=== PATIENT | female | born 1950 | race Caucasian/White ===

== ENCOUNTER → 2019-10-28 | Outpatient (CLI) | payer MEDICARE ==
[2019-10-28 11:26] LABS: Appearance,Urine Clear (Clear); Bilirubin,Urine Negative (Negative); Blood,Urine Negative (Negative); Color,Urine Light Yellow; Glucose,Urine (UA) Negative (Negative); Ketones,Urine Negative (Negative); Leukocyte Esterase,Urine Small (Negative); Nitrite,Urine Negative (Negative); Protein,Urine Negative (Negative); Specific Gravity,Urine 1.007 (1.001-1.035); Urobilinogen,Urine <2.0 mg/dL (<2.0); WBC,Urine 2 /hpf (0-5)
[2019-10-28 11:27] LABS: Basophils % (A) 0 %; Eosinophils # (A) 0.2 k/uL (0-0.7); Eosinophils % (A) 2 %; HCT 40.7 % (34.0-46.0); HGB 13.5 gm/dL (11.4-16.0); Lymphocytes # (A) 2.5 k/uL (1.0-4.8); Lymphocytes % (A) 24 %; MCH 29.8 pg (25.0-35.0); MCHC 33.2 g/dL (31.0-37.0); MCV 89.8 fL (80.0-100.0); Mean Platelet Volume 7.7; Monocytes # (A) 0.4 k/uL (0-1.0); Monocytes % (A) 4 %; Neutrophils # (A) 6.9 k/uL (1.3-7.7); Neutrophils % (A) 69 %; Platelet Count 311 k/uL (150-450); RBC 4.53 m/uL (3.80-5.40)
[2019-10-28 11:38] LABS: African American GFR (CKD) >90 (>60 ml/min/1.73 sqM); Anion Gap 8 mmol/L; Blood Urea Nitrogen 10 mg/dL (7-17); Calcium 10.6 mg/dL (8.4-10.2); Carbon Dioxide 29 mmol/L (22-30); Chloride 104 mmol/L (98-107); Glucose 94 mg/dL (74-99); Non-African American GFR(CKD) 89 (>60 ml/min/1.73 sqM); Potassium 4.5 mmol/L (3.5-5.1); Sodium 141 mmol/L (137-145)
[2019-10-28 12:02] LABS: INR 0.9 (<1.2); Partial Thromboplastin Time 22.8 sec (22.0-30.0); Prothrombin Time 9.5 sec (9.0-12.0)
--- NOTE | 2019-10-28 13:03 | XR ---
EXAMINATION TYPE: XR chest 2V DATE OF EXAM: 10/28/2019 COMPARISON: None HISTORY: 69 year-old female Z01.818 preoperative for back surgery TECHNIQUE: Frontal and lateral views FINDINGS: Heart normal size. Aorta and pulmonary vasculature within normal limits. Mild hyperinflation. No cons olidation or pleural effusion. IMPRESSION: Correlate for underlying COPD. No acute cardiopulmonary process.
== END | disposition home or self-care (01) ==
LOC: LABPAT 09:22
PROVIDERS: ATTEND Orthopaedic Surgery Orthopaedic Surgery of the Spine
DX: Z01.818 Encounter for other preprocedural examination (principal); Z01.812 Encounter for preprocedural laboratory examination; M43.10 Spondylolisthesis, site unspecified
CPT/HCPCS: 36415; 71046; 80048; 81001; 85025; 85610; 85730; 86850; 86870; 86880; 86900; 86901; 87070

== ENCOUNTER 2019-11-09 07:16 | Inpatient (IN) | payer MEDICARE ==
[2019-11-03 15:28] VITALS: BMI 23.8
[~2019-11-09 07:16] MED LIST: FAMOTIDINE 20 MG/2 ML VIAL IV PRN; ONDANSETRON 4 MG/2 ML VIAL IVP PRN; ceFAZolin 1,000 MG in SODIUM CHLORIDE 0.9% IRRIGATIO 1,000 ML IRRIGATION ONE
[2019-11-09 08:11] LABS: Glucose,Whole Blood 108 mg/dL (75-99)
[2019-11-09] MEDS: LACTATED RINGERS 1,000 ML IV SCH ×2 (08:13→16:16)
[2019-11-09] MEDS ORDERED: ONDANSETRON 4 MG/2 ML VIAL ONE (08:15)
[2019-11-09] MEDS ORDERED: ONDANSETRON 4 MG/2 ML VIAL IVP ONE (08:15)
[2019-11-09] MEDS ORDERED: HEPARIN SODIUM,PORCINE 10,000 UNIT/ML 1 ML VIAL ONE (08:27)
[2019-11-09] MEDS ORDERED: ROCURONIUM BROMIDE 10 MG/ML 5 ML VIAL IV ONE (08:27)
[2019-11-09] MEDS ORDERED: ePHEDrine SULFATE/0.9% NACL/PF 50 MG/5 ML SYRINGE IV ONE (08:27)
[2019-11-09] MEDS ORDERED: PROPOFOL 10 MG/ML 20 ML VIAL IV ONE (08:27)
[2019-11-09] MEDS ORDERED: HYDROmorphone (PF) 1 MG/ML ONE (08:27)
[2019-11-09] MEDS ORDERED: MIDAZOLAM 2 MG/2 ML VIAL ONE (08:27)
[2019-11-09] MEDS ORDERED: LIDOCAINE 1% INJ 10MG/ML (20 ML MDV) ONE (08:27)
[2019-11-09] MEDS ORDERED: GLYCOPYRROLATE 0.2 MG/ML 2 ML VIAL ONE (08:27)
[2019-11-09] MEDS ORDERED: SUCCINYLCHOLINE CHLORIDE 100 MG/5 ML SYR IV ONE (08:27)
[2019-11-09] MEDS ORDERED: PHENYLEPHRINE-0.9% NACL SYG 1 MG/10 ML SYRINGE ONE (08:27)
[2019-11-09] MEDS ORDERED: DEXAMETHASONE SOD PHOSPHATE 10 MG/ML 1 ML VIAL ONE (08:27)
[2019-11-09] MEDS ORDERED: SODIUM CHLORIDE 0.9% IRRIG 1,000 ML BTL IRRIGATION ONE (08:27)
[2019-11-09] MEDS ORDERED: fentaNYL (PF) 50 MCG/ML 2 ML AMP ONE (08:27)
[2019-11-09] MEDS ORDERED: LIDOCAINE 0.5%-EPI 1:200,000 50 ML VIAL SQ ONE (08:29)
[2019-11-09] MEDS ORDERED: GELATIN SPONGE,ABSORB (LARGE) 1 EACH SPONGE TOPICAL ONE (08:29)
[2019-11-09] MEDS ORDERED: THROMBIN (BOVINE) 5,000 UNIT VIAL TOPICAL ONE (08:29)
[2019-11-09] MEDS ORDERED: LACTATED RINGERS 1,000 ML IV ONE ×2 (09:58→12:41)
[2019-11-09] MEDS ORDERED: ceFAZolin 1,000 MG VIAL IVPB ONE (13:08)
[2019-11-09] MEDS ORDERED: HYDROmorphone 1 MG/ML 1 ML SYRINGE IVP PRN (13:43)
[2019-11-09] MEDS ORDERED: MAGNESIUM HYDROXIDE 2,400 MG/10 ML CUP PO PRN (13:43)
[2019-11-09] MEDS ORDERED: BENZOCAINE/MENTHOL LOZENG 1 EACH LOZENGE MUCOUS MEM PRN (13:43)
[2019-11-09] MEDS ORDERED: HYDROcodone/APAP 5-325MG 1 EACH TAB PO PRN (13:49)
--- NOTE | 2019-11-09 13:49 | XR ---
Fluoroscopy INDICATION: Pain FINDINGS: Fluoroscopy time: 0.35 minutes. Images obtained: 6. IMPRESSIONS: 1. Documentation of fluoroscopy.
[2019-11-09] MEDS: HYDROmorphone 0.5 MG/0.5 ML SYRINGE IVP PRN ×6 (13:54→23:56)
--- NOTE | 2019-11-09 13:54 | FL ---
Fluoroscopy INDICATION: Pain FINDINGS: Fluoroscopy time: 0.35 minutes Images obtained: 6. IMPRESSIONS: 1. Documentation of fluoroscopy.
--- NOTE | 2019-11-09 13:55 | P.OP ---
Date of Procedure: 11/09/19 Preoperative Diagnosis: Degenerative scoliosis, spondylolisthesis, severe spinal stenosis, degenerative disc disease, lower extremity radiculopathy, lower extremity weakness Postoperative Diagnosis: Same Anesthesia: GETA Pathology: none sent Condition: stable Disposition: PACU Description of Procedure: DESCRIPTION OF PROCEDURE(S): BRIEF OPERATIVE NOTE Preoperative Diagnosis: Degenerative scoliosis, spondylolisthesis, severe spinal stenosis, degenerative disc disease, lower extremity radiculopathy, lower extremity weakness Postoperative Diagnosis: Same Procedure: Laminectomy and decompression L2-3 and L3 4 L4 5 Computer navigation aided Minimally invasive Posterior lateral decompression and Facet fusion L2-3 L3 4 L4 5 Minimally invasive Transforaminal lumbar interbody fusion for a 360 fusionL2-3 L3 4 L4 5 Discectomy for decompression L2-3 L3 4 L4 5 Placement of interbody graftL2-3 and L3 4 L4 5 Use of computer navigation for fusionL2-3 4 and 5 Local autogenous bone grafting Aspiration of bone marrow from the pedicle of L2 on the right Use of bone graft extenders Surgeon: Dr. Yao Yarn Examiner Skeins: Kenny LUNA who is present throughout the entire the case persistence during positioning, dissection, exposure, visualization, and all crucial elements of the case as well as closure. Anesthesia: General anesthesia per Dr. West Estimated blood loss: Approximately 1100 mL, With 432 mL from Cell Saver given back to the patient Complications: None apparent Components implanted: K2M minimally invasive [place] pedicle screw system withscrews measuring 6.5 mm in diameter to rods one [place] interbody cage with 10 mL of osteo amp bio4 bone graft substitute and 30 mL of the BX bone fibers to supplement the local autogenous bone graft and bone marrow aspirate Disposition: To recovery room in good stable condition. OPERATIVE INDICATIONS The patient has had severe issues at their lower extremity in her lower back over the past several months. She has had symptoms for the past several years but has been having significant worsening over the past few months despite aggressive conservative treatment and management. She is having severe radicular symptoms at her right lower extremity with weakness. She is unable to obtain any comfort. We did aggressive conservative treatment with medications therapy and interventional pain management however she was not having any relief. She had evidence of degenerative scoliosis and severe disc degeneration. She also showed evidence of a listhesis with some dynamic instability. The patient has been through conservative treatment. We discussed various treatment options including surgery, and the patient wishes to proceed with surgery We discussed the risk, patient's alternatives and benefits of surgery including but not limited to, risk of bleeding risk of infection, risk of need for further surgery, risk of decreased, loss of motion, muscle function, malunion nonunion, hardware failure, nerve damage, paralysis, heart attack, b lindness and . She understood issues with the current pandemic and the possibility of exposure. OPERATIVE SUMMARY After discussing all the risks, patient alternatives and benefits at length, the patient elected to proceed with surgical intervention, signed informed consent, and presented for their procedure. The patient was seen and examined in the preoperative holding area and the surgical site was marked. The patient was given antibiotics and brought to the operating room. The patient was sedated and intubated by anesthesia in standard fashion. The patient was positioned on to the operating room table in a prone position on the appropriate frame which was well-padded and well molded. We were careful to pad any bony prominences and pressure points. We were careful to maintain the patient's cervical spine and good neutral alignment and position throughout. The patient was prepped and draped in a normal standard fashion. An appropriate timeout and keystone protocol performed. We were able to proceed with the surgery. The local wound area was infiltrated with local anesthetic. I was able utilize C-arm guidance to establish appropriate position over the pedicles bilaterally at the appropriate levels . With the appropriate levels confirmed was able to make small stab incisions over the appropriate pedicle sites bilaterally. Utilizing C-arm in the computer navigation device I was able to establish bony landmarks at the right iliac crest for a bony reference point for the navigation device. I was able to establish a Jamshidi needle over the lateral aspect of the pedicle and advanced the trocar into the pedicle being careful not to breech superiorly inferiorly medially or laterally using computer navigation device. Position was confirmed regularly with AP and lateral images on C-arm and with the computer navigation device. I was able to establish the trocar into the pedicle appropriately into the posterior aspect of the vertebral body bilaterally at the appropriate levelsAt L2-3 4 and 5. At L2 on the right I was able to approximate 30 mL of bone marrow aspirate for use later in the case to supplement the bone graft.This was done at each of the pedicle positions and each of the vertebrae. I was able place the guidewire into the trocar and into the vertebral body appropriately under C-arm guidance. Dissection was taken down over the wire to the appropriate starting position for the screw placed. The appropriate length screw was chosen, threaded over the guidewire and screwed appropriately into the pedicle and vertebral body under C-arm guidance in excellent alignment and position with good bony purchase. This is done at each of the screw sites at the appropriate levelsAt L2-3 4 and 5. With the screws intact I extended the incision to connect the screw hole sites on the most symptomatic side on the right. I started at L4 5 and then worked L3 4 and then L2-3. I dissected down to establish access over the pars and lamina to the base of the spinous process. I was able to expose the facet joint. The capsule the facet was taken down and showed some facet arthrosis at the joint. I was able to use a combination of curettes and [place] rongeurs and a high- speed drill to take down the facet joint and do a facetectomy. I was able get excellent foraminal decompression and central decompression with undermining across midline to perform a laminectomy centrally and contralaterally. As able get good central decompression. The ligamentum flavum was taken down to further decompress centrally and at bilateral neural foramen. There was severe central and bilateral foraminal stenosis which was remedied with the decompression. This is notable at each end levels.I was able to expose the disc space and visualize the traversing nerve root. Note was made of some disc protrusion and disc herniation that was adherent to the traversing nerve root at the level causing further compression of the nerve root. I was able to establish a annulotomy at the appropriate level protecting soft tissue and neural structures. Note was made of some disc desiccation at the disc and evidence of the prior discectomy. I performed a complete discectomy with accommodation of curettes and rasps and scrapers. I was able get good endplate preparation at the disc space. I sized for the appropriate size interbody spacer protecting the soft tissue and neural structures. The wound was copiously irrigated and suctioned dry. There is no evidence of any dural tear or leak. I was able to pack the disc space with local autogenous bone graft as well as a small amount of bone graft which was also placed into the interbody cage itself. Protecting the soft tissue structures and neural structures I was able place the interbody cage in good alignment and good position with good fit and fill at the interbody space. His issues was confirmed with C-arm guidance.This was done similarly first at L4 5 and then L3 4 and at L2-3. Good hemostasis maintained. There is no evidence of any dural tear or leak. The wound was irrigated and suctioned dry. With the hardware intact, intraoperative C-arm imaging was again taken which showed good alignment and position of the hardware at the appropriate levels. We were then able to measure, contour and place the rods and appropriate hardware bilaterally. I was able to place capcrews, tighten them down, and torque them with the torque screwdriver appropriately. With this intact I was able to place the local autogenous bone graft with additional bone graft enhancer as necessary into the posterior lateral gutters over the decorticated transverse processes and facet joints on the contralateral side. The remainder of the bone graft was placed over the facet joint on the contralateral side after taking down the facet joint capsule. With the bone graft intact, a stable construct, and good decompression at the appropriate levels, we were able to proceed with closure. Good hemostasis was maintained. There is no evidence of dural tear or leak. The fascia was closed for a watertight closure. he subcuticular tissue was closed with absorbable suture. The wound was cleaned and dried and dressed with the appropriate dressing. The drapes were broken down. The patient was gently rolled back onto their hospital bed being careful to maintain their cervical spine and good neutral alignment and position. They were woken up by anesthesia, extubated, and brought to the recovery room in good stable condition. The patient will be admitted to the hospital for appropriate postoperative care, medical management and monitoring. We will continue to follow them closely about the postoperative course.
[2019-11-09] MEDS ORDERED: ERGOCALCIFEROL 50,000 UNIT CAP PO SCH (14:00)
[2019-11-09] MEDS: ONDANSETRON 4 MG/2 ML VIAL IVP PRN (16:13)
[2019-11-09] MEDS: SODIUM CHLORIDE 0.9% 1,000 ML IV SCH (16:14)
[2019-11-09] MEDS ORDERED: SODIUM CHLORIDE 0.9% 500 ML 500 ML IV ONE (16:26)
[2019-11-09 17:37] LABS: ALT 14 U/L (4-34); AST 30 U/L (14-36); African American GFR (CKD) >90 (>60 ml/min/1.73 sqM); Albumin 2.5 g/dL (3.5-5.0); Albumin/Globulin Ratio 1.3; Alkaline Phosphatase 49 U/L (38-126); Anion Gap 2 mmol/L; Blood Urea Nitrogen 12 mg/dL (7-17); Calcium 7.7 mg/dL (8.4-10.2); Carbon Dioxide 24 mmol/L (22-30); Chloride 112 mmol/L (98-107); Globulin 1.9 g/dL; Glucose 143 mg/dL (74-99); Non-African American GFR(CKD) >90 (>60 ml/min/1.73 sqM); Sodium 138 mmol/L (137-145); Total Bilirubin 0.3 mg/dL (0.2-1.3); Total Protein 4.4 g/dL (6.3-8.2)
[2019-11-09 17:44] LABS: Basophils % (A) 0 %; Eosinophils % (A) 0 %; HCT 29.3 % (34.0-46.0); Lymphocytes # (A) 0.8 k/uL (1.0-4.8); Lymphocytes % (A) 5 %; MCH 30.2 pg (25.0-35.0); MCV 91.5 fL (80.0-100.0); Mean Platelet Volume 8.2; Monocytes # (A) 0.3 k/uL (0-1.0); Monocytes % (A) 2 %; Neutrophils # (A) 13.5 k/uL (1.3-7.7); Neutrophils % (A) 93 %; Platelet Count 229 k/uL (150-450); RDW 12.1 % (11.5-15.5); WBC 14.6 k/uL (3.8-10.6)
[2019-11-09 17:45] LABS: HGB 9.7 gm/dL (11.4-16.0)
[2019-11-09] MEDS: HYDROcodone/APAP 5-325MG 1 EACH TAB PO PRN (20:38)
[2019-11-09] MEDS: ATORVASTATIN 20 MG TAB PO SCH (20:38)
[2019-11-09] MEDS: traZODone HCL 50 MG TAB PO SCH (20:38)
[2019-11-09 21:28] LABS: Appearance,Urine Clear (Clear); Bilirubin,Urine Negative (Negative); Blood,Urine Small (Negative); Color,Urine Yellow; Glucose,Urine (UA) Negative (Negative); Ketones,Urine Trace (Negative); Leukocyte Esterase,Urine Large (Negative); Mucus,Urine Rare /hpf; Nitrite,Urine Negative (Negative); Protein,Urine Negative (Negative); RBC,Urine 7 /hpf (0-5); Specific Gravity,Urine 1.021 (1.001-1.035); Urobilinogen,Urine <2.0 mg/dL (<2.0); WBC,Urine 18 /hpf (0-5)
--- NOTE | 2019-11-09 22:03 | CONS ---
CONSULTATION DATE OF SERVICE: 11/09/2019 REASON FOR CONSULTATION: Advice regarding hyperlipidemia, DJD and multiple other medical issues requested by Dr. Yao. HISTORY OF PRESENT ILLNESS: This 69-year-old woman with a past medical history of hyperlipidemia, DJD, history of bladder surgery, being followed by a primary physician in the [place] area related to the [facility], underwent laminectomy and decompression L2-3 and L3, 4, 5 for severe DJD, spondylolisthesis and severe spinal stenosis by Dr. Yao. The patient tolerated the procedure well. The patient is being closely monitored. The patient had some dehydration. No chest pain. No palpitations. No fever. PAST MEDICAL HISTORY: History of hyperlipidemia, history of DJD, history of bladder surgery. MEDICATIONS PRIOR TO ADMISSION: Medications prior to admission include: 1. Aspirin 81 mg p.o. daily. 2. Trazodone 50 mg at bedtime. 3. [place] 5 mg q.6 hours. 4. Folic acid 1 mg. 5. Ergocalciferol. 6. Voltaren 2 grams q.i.d. p.r.n. 7. Lipitor 20 mg at bedtime. ALLERGIES: NONE. FAMILY HISTORY: No history of heart disease or strokes in the family. SOCIAL HISTORY: No history of smoking. No history of alcohol intake. REVIEW OF SYSTEMS: ENT: As mentioned earlier. CARDIOVASCULAR SYSTEM: No angina, palpitations. RESPIRATORY SYSTEM: No cough, hemoptysis. GI: No nausea, vomiting. : No dysuria or retention. NERVOUS SYSTEM: As mentioned earlier. ALLERGY/IMMUNOLOGY: No asthma, hayfever. MUSCULOSKELETAL: As mentioned earlier. HEMATOLOGY/ONCOLOGY: No history of anemia. ENDOCRINE: No hypothyroidism. CONSTITUTIONAL: As mentioned earlier. DERMATOLOGY: Negative. RHEUMATOLOGY: Negative. PSYCHIATRY: Negative. PHYSICAL EXAMINATION: Patient alert and oriented x3. Pulse 98, blood pressure 81/49, respiration 17, temperature 98 degrees, pulse ox 96% on 2 L. HEENT: Conjunctivae normal. Oral mucosa dry. NECK: No jugular venous distention. No carotid bruit. No lymph node enlargement. CARDIOVASCULAR SYSTEM: S1, S2 muffled. No S3. No S4. RESPIRATORY SYSTEM: Breath sounds diminished at the bases. No rhonchi. No crackles. ABDOMEN: Soft, non-tender. No mass palpable. LEGS: No edema. No swelling. NERVOUS SYSTEM: No focal deficit. EXAMINATION OF THE BACK: Status post surgery. LABS: Glucose 108. Preoperative labs showed CBC within normal limits. Coags are normal. Chemistry shows calcium 10.6. UA is unremarkable. ASSESSMENT: 1. Status post decompression and laminectomy, L2-3, L3-4, L4-5 for severe degenerative joint disease, spondylolisthesis and severe spinal stenosis. 2. Dehydration, mild. 3. Mild hypercalcemia preoperatively. 4. Hyperlipidemia. 5. History of degenerative joint disease. 6. History of bladder surgery. 7. History of anxiety. 8. History of nicotine dependence. 9. FULL CODE. RECOMMENDATIONS AND DISCUSSION: In this 69-year-old woman who presented with multiple medical issues, we will monitor the patient closely, continue the current medications, continue symptomatic treatment. Otherwise I recommend baseline labs. TSH. IV fluids. Bolus fluids to maintain the blood pressure. A set of troponin and EKG also may be requested to complete the workup. We will follow the patient closely with you. Thank you, Dr. Yao, for letting us participate in the care of this patient. The patient may be asked to follow closely with her primary physician closely after discharge. MMODL / IJN: [id number] /
[2019-11-10] MEDS: HYDROmorphone 0.5 MG/0.5 ML SYRINGE IVP PRN ×4 (03:48→20:26)
[2019-11-10] MEDS: HYDROcodone/APAP 5-325MG 1 EACH TAB PO PRN ×4 (03:49→22:17)
[2019-11-10] MEDS: SODIUM CHLORIDE 0.9% 1,000 ML IV SCH ×2 (03:50→11:31)
[2019-11-10 05:05] LABS: Basophils % (A) 0 %; Eosinophils % (A) 0 %; HCT 25.9 % (34.0-46.0); HGB 8.5 gm/dL (11.4-16.0); Lymphocytes # (A) 1.4 k/uL (1.0-4.8); Lymphocytes % (A) 9 %; MCH 29.9 pg (25.0-35.0); MCHC 32.7 g/dL (31.0-37.0); MCV 91.5 fL (80.0-100.0); Monocytes # (A) 0.7 k/uL (0-1.0); Monocytes % (A) 5 %; Neutrophils # (A) 12.9 k/uL (1.3-7.7); Neutrophils % (A) 85 %; Platelet Count 201 k/uL (150-450); RBC 2.83 m/uL (3.80-5.40); RDW 12.4 % (11.5-15.5); WBC 15.1 k/uL (3.8-10.6)
--- NOTE | 2019-11-10 06:50 | P.PN ---
Progress Note - Text Progress Note Date: 11/10/19 Postoperative day #1 Patient is seen and examined today at bedside. The patient has some pain around the surgical site as expected. She says her leg is already feeling significantly better since her surgery. She was able to drink a little bit and he only has small amount Pain is being controlled with medication. Physical Exam Afebrile with stable vital signs Abdomen is soft nontender. Chest has good excursion deep and space expiration The incision site is clean dry and intact. No erythema there is no purulence. The dressing is intact at her lower back Extremities have not had neurologic change from prior to surgery. She has sustained dorsal to plantar flexion and EHL intact in her lower extremities Calves and thighs were soft nontender without evidence of DVT. Assessment/Plan Postoperative day #1 status post minimally invasive decompression and fusion L2- 3 and L3 4 L4 5 for her degenerative scoliosis spondylolisthesis and spinal stenosis with lower extremity radiculopathy Patient is progressing as expected from the surgery. She has been able to drink significant fluid centimeters small amount but she is already happy with her lower extremity changes in terms of the radiculopathy. We will continue to increase the patient's mobilization with therapy. Hopefully she'll be okay for discharge likely Thursday but possibly Thursday. We will continue pain control with oral or IV medications. We'll continue to follow patient closely.
[2019-11-10] MEDS: SENNOSIDES-DOCUSATE SODIUM 1 EACH TAB PO SCH (08:38)
[2019-11-10] MEDS: ASPIRIN 81 MG PO SCH (08:38)
[2019-11-10] MEDS: FOLIC ACID 1 MG TAB PO SCH (08:38)
[2019-11-10 09:23] LABS: African American GFR (CKD) 107.8 (60.0-200.0); Anion Gap 5.3 mmol/L (4.00-12.00); BUN/Creat Ratio 16.67 Ratio (12.00-20.00); Calcium 7.6 mg/dL (8.7-10.3); Carbon Dioxide 26.7 mmol/L (21.6-31.8); Potassium 4.3 mmol/L (3.5-5.5)
--- NOTE | 2019-11-10 15:34 | PN ---
PROGRESS NOTE DATE OF SERVICE: 11/10/2019 This 69-year-old woman was admitted after decompression laminectomy, was complaining of back pain, no chest pain. No palpitations. Patient dehydrated yesterday. No chest pain. No palpitations. Mild hypotension. The basic labs done showed elevated WBC and possible UTI, also empiric antibiotics initiated. PAST MEDICAL HISTORY: Reviewed. REVIEW OF SYSTEMS: CARDIOVASCULAR SYSTEM: No angina. RESPIRATION: As mentioned earlier. GI: No nausea. : No dysuria. NERVOUS SYSTEM: As mentioned earlier. CURRENT MEDICATIONS: Reviewed and include: 1. [place] 5 mg q.4 p.r.n. 2. Aspirin. 3. Lipitor. 4. Cepacol. 5. Rocephin. 6. Folic acid. 7. Dilaudid. 8. Milk of magnesia. 9. Zofran. 10.Senokot S. 11.Desyrel. Doses reviewed. PHYSICAL EXAM: Patient alert and oriented x3, pulse 79, blood pressure 91/51, respirations 16, temperature 99.4, pulse ox 97% on room air. HEENT: Conjunctivae normal. NECK: No jugular venous distension. CARDIOVASCULAR SYSTEM: S1, S2, muffled. RESPIRATORY: Breath sounds diminished at the bases, no rhonchi, no crackles. ABDOMEN: Soft, nontender. LEGS: No edema, no swelling. NERVOUS SYSTEM: No focal deficits. BACK: Status post surgery. LABS: WBC 15.1, hemoglobin is 8.5, and calcium is 7.6, albumin is 2.59. ASSESSMENT: 1. Status post decompression laminectomy, L2-3, L3-4, L4-5 for severe DJD, spondylosis and severe spinal stenosis. 2. Mild dehydration present on admission. 3. Acute urinary tract infection present on admission. 4. Mild hypocalcemia currently. 5. Hyperlipidemia. 6. History of degenerative joint disease. 7. Increased WBC, possibly reactive. 8. Anemia possibly anemia of chronic disease. 9. History of bladder surgery. 10.History of anxiety. 11.History of nicotine dependence. 12.FULL CODE. RECOMMENDATION: In this 69-year-old woman who presented with multiple medical issues, at this time I recommend to continue the current management and symptomatic treatment. The patient has acute UTI. I would recommend a short course of antibiotics. Otherwise, continue to monitor, repeat labs will be ordered and cultures also will be obtained. We will follow the patient closely. The patient has got some later hypotension. Will keep the IV fluids today also and continue to monitor. Further recommendations to follow. Thank you, Dr. Yao. ALISHA / ARGENIS: [id number] /
[2019-11-10] MEDS: traZODone HCL 50 MG TAB PO SCH (20:26)
[2019-11-10] MEDS: ATORVASTATIN 20 MG TAB PO SCH (20:26)
[2019-11-11] MEDS: HYDROmorphone 0.5 MG/0.5 ML SYRINGE IVP PRN ×3 (02:46→16:20)
[2019-11-11] MEDS: SODIUM CHLORIDE 0.9% 1,000 ML IV SCH ×2 (04:51→19:38)
[2019-11-11] MEDS: ASPIRIN 81 MG PO SCH (07:32)
[2019-11-11] MEDS: FOLIC ACID 1 MG TAB PO SCH (07:32)
[2019-11-11] MEDS: SENNOSIDES-DOCUSATE SODIUM 1 EACH TAB PO SCH (07:32)
[2019-11-11] MEDS: ONDANSETRON 4 MG/2 ML VIAL IVP PRN (07:46)
--- NOTE | 2019-11-11 08:49 | P.PN ---
Progress Note - Text Progress Note Date: 11/11/19 Orthopedic Spine: History of present illness: Patient is a pleasant 69-year-old female who is seen and examined at the bedside following posterior lateral decompression and fusion performed Thursday. Patient states they are doing okay postsurgically. She did have significant difficulty with mobilization and pain control yesterday. She attended physical therapy difficulty getting out of bed. Her Spar[place] catheter had remained intact. Patient is currently lying comfortably on her left side and states his best position she has been in since surgery. She currently denies any lower extremity weakness and radiculopathy bilaterally. She states her legs feel well. She states today she would be willing to continue trying to work with physical therapy. Currently does not complain of nausea, vomiting, fever, or chills. Patient states her pain is currently being well controlled. Patient is eating and voiding freely without difficulty. Physical Exam Lumbar Fusion: Status post surgical day number 2 Patient is awake, alert, and oriented 3 Vital signs stable Good chest excursion with deep inspiration and expiration Dorsiflexion, plantarflexion, and extensor hallucis longus positive sustained bilaterally No signs or symptoms of DVT; no calf pain; pneumatic cuffs intact bilateral lower extremities Dressings are clean, dry, and intact; no erythema, purulence, or signs of infection Sparrow catheter intact Neurovascularly intact bilaterally lower extremities Assessment: Status post L2-3, L3-4, L4-5 minimally invasive posterior lateral decompression and fusion with transforaminal lumbar interbody fusion Low back pain Degenerative scoliosis Lumbar spondylolisthesis Lumbar degenerative disc disease Severe spinal canal stenosis Hyperlipidemia Plan: 1. Ambulate as tolerated; work with Physical Therapy to increase mobilization 2. Continue pain control with IV and oral medications; we discussed with the patient's pain continues to be control we will plan to wean her off IV Dilaudid in anticipation for discharge home or the next 1-2 days MAPS has been reviewed today, 11/11/2019, with an Overall Overdose Risk Score of . An "Opiod Start Talking" Form has been signed and placed in the patient's chart. A prescription has been written for Oxly 7.5 mg #25 mg 1-2 tabs every 6 hours as needed for pain, dispensed #56 3. Dressing to remain intact; patient may shower with dressings intact 4. Medical management can continue to manage patient for patient's other medical diagnoses 5. We will continue to follow the patient closely; if the patient is able to improve, we'll plan for discharge home on the next 1-2 days 6. Patient can follow-up with Kenny Bills PA-C or Dr. Mykel Yao at [facility] in 2-3 weeks following discharge
[2019-11-11] MEDS: HYDROcodone/APAP 5-325MG 1 EACH TAB PO PRN ×2 (11:46→19:00)
--- NOTE | 2019-11-11 18:45 | P.PN ---
Subjective Progress Note Date: 11/11/19 69-year-old female who is seen and examined at the bedside following posterior lateral decompression and fusion performed Thursday. Patient states they are doing okay postsurgically. She did have significant difficulty with mobilization and pain control yesterday. She attended physical therapy difficulty getting out of bed. Her Sparrow catheter had remained intact. Patient is currently lying comfortably on her left side and states his best position she has been in since surgery. She currently denies any lower extremity weakness and radiculopathy bilaterally. She states her legs feel well. She states today she would be willing to continue trying to work with physical therapy. Andres ruelas does not complain of nausea, vomiting, fever, or chills. Patient states her pain is currently being well controlled. Patient is eating and voiding freely without difficulty. Objective - Vital Signs Vital signs: Vital Signs Temp 98.7 F 11/11/19 13:00 Pulse 82 11/11/19 13:00 Resp 18 11/11/19 13:00 BP 115/63 11/11/19 13:00 Pulse Ox 97 11/11/19 13:00 Intake & Output 11/10/19 11/11/19 11/11/19 18:59 06:59 18:59 Intake Total 850 300 Output Total 1500 2100 Balance -650 -1800 Intake: Intake, IV Titration 850 300 Amount Sodium Chloride 0.9% 1, 800 300 000 ml @ 100 mls/hr IV . Q10H [facility] Rx#:[id number] cefTRIAXone 1 gm In 50 Sodium Chloride 0.9% 50 ml @ 100 mls/hr IVPB Q24HR [facility] Rx#:[id number] Output: Urine 1500 2100 Other: Voiding Method Indwelling Catheter Indwelling Catheter Indwelling Catheter - Exam - Constitutional General appearance: Present: average body habitus, cooperative, no acute distress - EENT Eyes: Present: anicteric sclerae, EOMI, PERRLA, normal appearance ENT: Present: hearing grossly normal, normal oropharynx Ears: bilateral: normal - Neck Neck: Present: normal ROM. Absent: lymphadenopathy, rigidity, thyromegaly Carotids: negative: bruit present Thyroid: bilateral: normal size, negative: enlarged, nodule - Respiratory Respiratory: bilateral: CTA, negative: rales, rhonchi, wheezing - Cardiovascular Rhythm: regular Heart sounds: normal: S1, S2 Abnormal Heart Sounds: Absent: systolic murmur, diastolic murmur - Gastrointestinal General gastrointestinal: Present: normal bowel sounds, soft. Absent: distended, organomegaly, tenderness - Genitourinary Genitourinary Comment(s): deferred - Integumentary Integumentary: Present: normal turgor. Absent: jaundiced, rash, ulcer - Neurologic Neurologic: Present: CNII-XII intact. Absent: focal deficits - Musculoskeletal Musculoskeletal: Present: gait normal, strength equal bilaterally - Psychiatric Psychiatric: Present: A&O x's 3, appropriate affect, intact judgment & insight - Labs CBC & Chem 7: 11/10/19 04:46 11/10/19 04:46 Labs: Microbiology - Last 24 Hours (Table) 11/09/19 Unknown Urine Culture - Final Urine,Voided Assessment and Plan Assessment: Status post L2-3, L3-4, L4-5 minimally invasive posterior lateral decompression and fusion with transforaminal lumbar interbody fusion - Surgery recommending to ambulate as tolerated; continue to increase activity with physical therapy; patient remains on pain controlled on IV and oral pain medications with plan to wean off IV Dilaudid for anticipated discharge in next 1-2 days Low back pain; secondary to degenerative scoliosis, lumbar spondylolisthesis; pain control as above Hyperlipidemia; Lipitor 20 mg by mouth daily at bedtime DVT prophylaxis; SCDs/early ambulation CODE STATUS; full code
[2019-11-11] MEDS: traZODone HCL 50 MG TAB PO SCH (21:04)
[2019-11-11] MEDS: ATORVASTATIN 20 MG TAB PO SCH (21:04)
[2019-11-12] MEDS: HYDROmorphone 0.5 MG/0.5 ML SYRINGE IVP PRN ×3 (01:01→14:13)
[2019-11-12] MEDS: ONDANSETRON 4 MG/2 ML VIAL IVP PRN (01:01)
[2019-11-12] MEDS: SODIUM CHLORIDE 0.9% 1,000 ML IV SCH ×3 (01:13→16:54)
[2019-11-12] MEDS: FOLIC ACID 1 MG TAB PO SCH (08:36)
[2019-11-12] MEDS: ASPIRIN 81 MG PO SCH (08:36)
[2019-11-12] MEDS: SENNOSIDES-DOCUSATE SODIUM 1 EACH TAB PO SCH (08:36)
--- NOTE | 2019-11-12 10:16 | P.PN ---
Subjective Progress Note Date: 11/12/19 Principal diagnosis: Status post L2-3, L3-4, L4-5 minimally invasive posterior lateral decompression and fusion with transforaminal lumbar interbody fusion The patient is a pleasant 69-year-old female who is seen and examined at the bedside status post minimally invasive posterior lateral decompression and fusion performed on 11/09/2019. She states she feels like she is getting stronger today than yesterday. She is able to move herself around in bed easier today. The patient states she hasn't been out of bed yet but would like to sit in the chair today. Her yi catheter was removed this morning. She feels like she could have a bowel movement soon. She currently denies any lower extremity weakness and radiculopathy bilaterally. She states her legs continue to feel well. Currently does not complain of nausea, vomiting, chest pain, shortness of breath, fever, or chills. Patient states her pain is currently being well controlled. Patient is eating without difficulty. Objective - Vital Signs Vital signs: Vital Signs Temp 98.8 F 11/12/19 05:00 Pulse 92 11/12/19 05:00 Resp 20 11/12/19 05:00 BP 148/77 11/12/19 05:00 Pulse Ox 98 11/12/19 05:00 Intake & Output 11/11/19 11/12/19 11/12/19 18:59 06:59 18:59 Intake Total 650 240 Output Total 2100 Balance -1450 240 Intake: Intake, IV Titration 50 Amount cefTRIAXone 1 gm In 50 Sodium Chloride 0.9% 50 ml @ 100 mls/hr IVPB Q24HR [facility] Rx#:[id number] Oral 600 240 Output: Urine 2100 Other: Voiding Method Indwelling Catheter Indwelling Catheter # Voids 2 # Bowel Movements 0 - Exam The patient is a 69 y/o female in no acute distress. She is alert and oriented x3. Vital signs stable. Good chest excursion with deep inspiration and expirati on. Dorsiflexion, plantarflexion, and extensor hallucis longus positive sustained bilaterally. No signs or symptoms of DVT; no calf pain; pneumatic cuffs intact bilateral lower extremities. Dressings are clean, dry, and intact; no erythema, purulence, or signs of infection. Neurovascularly intact bilaterally lower extremities. - Labs CBC & Chem 7: 11/10/19 04:46 11/10/19 04:46 Assessment and Plan (1) Lumbar degenerative disc disease Current Visit: Yes Status: Acute Code(s): M51.36 - OTHER INTERVERTEBRAL DISC DEGENERATION, LUMBAR REGION SNOMED Code(s): 53324105 (2) Status post lumbar spinal fusion Current Visit: Yes Status: Acute Code(s): Z98.1 - ARTHRODESIS STATUS SNOMED Code(s): 63980282630619 Plan: 1. Ambulate as tolerated; work with Physical Therapy to increase mobilization 2. Continue pain control with IV and oral medications; we discussed with the patient's pain continues to be control we will plan to wean her off IV Dilaudid in anticipation for discharge home or the next 1-2 days. 3. Dressing to remain intact; patient may shower with dressings intact 4. Medical management can continue to manage patient for patient's other medical diagnoses 5. We will continue to follow the patient closely; if the patient is able to improve, we'll plan for discharge home on the next 1-2 days 6. Patient can follow-up with Kenny Bills PA-C or Dr. Mykel Yao at [facility] in 2-3 weeks following discharge
[2019-11-12] MEDS: HYDROcodone/APAP 5-325MG 1 EACH TAB PO PRN ×3 (10:53→23:52)
--- NOTE | 2019-11-12 18:04 | P.PN ---
Subjective Progress Note Date: 11/12/19 Principal diagnosis: Status post L2-3, L3-4, L4-5 minimally invasive posterior lateral decompression and fusion with transforaminal lumbar interbody fusion 69-year-old female who is seen and examined at the bedside following posterior lateral decompression and fusion performed Thursday. Patient states they are doing okay postsurgically. She did have significant difficulty with mobilization and pain control yesterday. She attended physical therapy difficulty getting out of bed. Her Sparrow catheter had remained intact. Patient is currently lying comfortably on her left side and states his best position she has been in since surgery. She currently denies any lower extremity weakness and radiculopathy bilaterally. She states her legs feel well. She states today she would be willing to continue trying to work with physical therapy. Currently does not complain of nausea, vomiting, fever, or chills. Patient states her pain is currently being well controlled. Patient is eating and voiding freely without difficulty. 11/12/2019 Patient is seen and evaluated in room at bedside; denies any specific complaints; does report feeling little stronger and less and pain; Sparrow catheter was discontinued this morning; hasn't had any bowel movement yet; patient is encouraged to increase activity and she reports that she hasn't been out of bed yet; surgery is following and recommending increase activity with physical therapy with continued pain control with a combination of IV and oral medications; plan is to slowly being patient off of IV Dilaudid for anticipated discharge in next 24-48 hours Objective - Vital Signs Vital signs: Vital Signs Temp 98.7 F 11/12/19 11:51 Pulse 87 11/12/19 11:51 Resp 18 11/12/19 11:51 BP 91/54 11/12/19 11:51 Pulse Ox 96 11/12/19 11:51 Intake & Output 11/11/19 11/12/19 11/12/19 18:59 06:59 18:59 Intake Total 650 240 850 Output Total 2100 Balance -1450 240 850 Intake: Intake, IV Titration 50 850 Amount Sodium Chloride 0.9% 1, 800 000 ml @ 100 mls/hr IV . Q10H [facility] Rx#:[id number] cefTRIAXone 1 gm In 50 50 Sodium Chloride 0.9% 50 ml @ 100 mls/hr IVPB Q24HR [facility] Rx#:[id number] Oral 600 240 Output: Urine 2100 Other: Voiding Method Indwelling Catheter Indwelling Catheter Indwelling Catheter # Voids 2 # Bowel Movements 0 - Exam - Constitutional General appearance: Present: average body habitus, cooperative, no acute distress - EENT Eyes: Present: anicteric sclerae, EOMI, PERRLA, normal appearance ENT: Present: hearing grossly normal, normal oropharynx Ears: bilateral: normal - Neck Neck: Present: normal ROM. Absent: lymphadenopathy, rigidity, thyromegaly Carotids: negative: bruit present Thyroid: bilateral: normal size, negative: enlarged, nodule - Respiratory Respiratory: bilateral: CTA, negative: rales, rhonchi, wheezing - Cardiovascular Rhythm: regular Heart sounds: normal: S1, S2 Abnormal Heart Sounds: Absent: systolic murmur, diastolic murmur - Gastrointestinal General gastrointestinal: Present: normal bowel sounds, soft. Absent: distended, organomegaly, tenderness - Genitourinary Genitourinary Comment(s): deferred - Integumentary Integumentary: Present: normal turgor. Absent: jaundiced, rash, ulcer - Neurologic Neurologic: Present: CNII-XII intact. Absent: focal deficits - Musculoskeletal Musculoskeletal: Present: gait normal, strength equal bilaterally - Psychiatric Psychiatric: Present: A&O x's 3, appropriate affect, intact judgment & insight - Labs CBC & Chem 7: 11/10/19 04:46 11/10/19 04:46 Assessment and Plan Assessment: Status post L2-3, L3-4, L4-5 minimally invasive posterior lateral decompression and fusion with transforaminal lumbar interbody fusion - Surgery recommending to ambulate as tolerated; continue to increase activity with physical therapy; patient remains on pain controlled on IV and oral pain medications with plan to wean off IV Dilaudid for anticipated discharge in next 1-2 days Low back pain; secondary to degenerative scoliosis, lumbar spondylolisthesis; pain control as above Hyperlipidemia; Lipitor 20 mg by mouth daily at bedtime DVT prophylaxis; SCDs/early ambulation CODE STATUS; full code
[2019-11-12] MEDS: traZODone HCL 50 MG TAB PO SCH (20:07)
[2019-11-12] MEDS: ATORVASTATIN 20 MG TAB PO SCH (20:07)
[2019-11-13] MEDS: SODIUM CHLORIDE 0.9% 1,000 ML IV SCH ×4 (03:14→22:20)
[2019-11-13] MEDS: HYDROcodone/APAP 5-325MG 1 EACH TAB PO PRN ×4 (04:21→20:00)
[2019-11-13] MEDS: FOLIC ACID 1 MG TAB PO SCH (07:18)
[2019-11-13] MEDS: SENNOSIDES-DOCUSATE SODIUM 1 EACH TAB PO SCH (07:19)
[2019-11-13] MEDS: ASPIRIN 81 MG PO SCH (07:19)
--- NOTE | 2019-11-13 11:14 | P.PN ---
Subjective Progress Note Date: 11/13/19 Principal diagnosis: Status post L2-3, L3-4, L4-5 minimally invasive posterior lateral decompression and fusion with transforaminal lumbar interbody fusion The patient is a pleasant 69-year-old female who is seen and examined at the bedside status post minimally invasive posterior lateral decompression and fusion performed on 11/09/2019. She states she feels like she is getting stronger everyday. She is able to move herself around in bed easier today. The patient states she was in the chair yesterday. She currently denies any lower extremity weakness and radiculopathy bilaterally. She states her legs continue to feel better than before surgery. Currently does not complain of nausea, vomiting, chest pain, shortness of breath, fever, or chills. Patient states her pain is currently being well controlled. Patient is eating without difficulty. She is tearful and is very concerned about going home because her is not helpful and would not help her once she gets home. She would like to consider rehab placement for a few weeks until she is stronger to go home and take care of herself. Objective - Vital Signs Vital signs: Vital Signs Temp 98.4 F 11/13/19 04:49 Pulse 67 11/13/19 08:00 Resp 18 11/13/19 08:00 BP 100/55 11/13/19 04:49 Pulse Ox 97 11/13/19 04:49 Intake & Output 11/12/19 11/13/19 11/13/19 18:59 06:59 18:59 Intake Total 850 500 Balance 850 500 Intake: Intake, IV Titration 850 Amount Sodium Chloride 0.9% 1, 800 000 ml @ 100 mls/hr IV . Q10H [facility] Rx#:[id number] cefTRIAXone 1 gm In 50 Sodium Chloride 0.9% 50 ml @ 100 mls/hr IVPB Q24HR [facility] Rx#:[id number] Oral 500 Other: Voiding Method Indwelling Catheter Indwelling Catheter Indwelling Catheter # Voids 3 # Bowel Movements 0 - Exam The patient is a 69 y/o female in no acute distress. She is alert and oriented x3. Vital signs stable. Good chest excursion with deep inspiration and expiration. Dorsiflexion, plantarflexion, and extensor hallucis longus positive sustained bilaterally. No signs or symptoms of DVT; no calf pain; pneumatic cuffs intact bilateral lower extremities. Dressings are clean, dry, and intact; no erythema, purulence, or signs of infection. Neurovascularly intact bilaterally lower extremities. - Labs CBC & Chem 7: 11/10/19 04:46 11/10/19 04:46 Assessment and Plan (1) Lumbar degenerative disc disease Current Visit: Yes Status: Acute Code(s): M51.36 - OTHER INTERVERTEBRAL DISC DEGENERATION, LUMBAR REGION SNOMED Code(s): 30457041 (2) Status post lumbar spinal fusion Current Visit: Yes Status: Acute Code(s): Z98.1 - ARTHRODESIS STATUS SNOMED Code(s): 84741594725672 Plan: 1. Ambulate as tolerated; work with Physical Therapy to increase mobilization 2. Continue pain control with IV and oral medications; we discussed with the patient's pain continues to be control we will plan to wean her off IV Dilaudid in anticipation for discharge in the next 1-2 days. 3. Dressing to remain intact; patient may shower with dressings intact 4. Medical management can continue to manage patient for patient's other medical diagnoses 5. Case management and social work consulted for possible skilled rehab placement for 1-2 weeks. 6. Patient can follow-up with Kenny Bills PA-C or Dr. Mykel Yao at [facility] in 2-3 weeks following discharge
--- NOTE | 2019-11-13 15:06 | P.PN ---
Subjective Progress Note Date: 11/13/19 Principal diagnosis: Status post L2-3, L3-4, L4-5 minimally invasive posterior lateral decompression and fusion with transforaminal lumbar interbody fusion 69-year-old female who is seen and examined at the bedside following posterior lateral decompression and fusion performed Thursday. Patient states they are doing okay postsurgically. She did have significant difficulty with mobilization and pain control yesterday. She attended physical therapy difficulty getting out of bed. Her Sparrow catheter had remained intact. Patient is currently lying comfortably on her left side and states his best position she has been in since surgery. She currently denies any lower extremity weakness and radiculopathy bilaterally. She states her legs feel well. She states today she would be willing to continue trying to work with physical therapy. Currently does not complain of nausea, vomiting, fever, or chills. Patient states her pain is currently being well controlled. Patient is eating and voiding freely without difficulty. 11/12/2019 Patient is seen and evaluated in room at bedside; denies any specific complaints; does report feeling little stronger and less and pain; Sparrow catheter was discontinued this morning; hasn't had any bowel movement yet; patient is encouraged to increase activity and she reports that she hasn't been out of bed yet; surgery is following and recommending increase activity with physical therapy with continued pain control with a combination of IV and oral medications; plan is to slowly being patient off of IV Dilaudid for anticipated discharge in next 24-48 hours 11/13/2019 Patient continues to report improvement in symptoms and feeling stronger; remains in bed most of the time; reports sitting up in the chair yesterday; claims that her lower extremities are still quite weak but slowly improving; patient states that she is very concerned about going home and would not be getting much help from her and is requesting possible rehab placement until she is stronger to go home and take care of herself; we will consult case management for further plan of care Objective - Vital Signs Vital signs: Vital Signs Temp 98.4 F 11/13/19 04:49 Pulse 67 11/13/19 08:00 Resp 18 11/13/19 08:00 BP 100/55 11/13/19 04:49 Pulse Ox 97 11/13/19 04:49 Intake & Output 11/12/19 11/13/19 11/13/19 18:59 06:59 18:59 Intake Total 850 500 Balance 850 500 Intake: Intake, IV Titration 850 Amount Sodium Chloride 0.9% 1, 800 000 ml @ 100 mls/hr IV . Q10H [facility] Rx#:[id number] cefTRIAXone 1 gm In 50 Sodium Chloride 0.9% 50 ml @ 100 mls/hr IVPB Q24HR [facility] Rx#:[id number] Oral 500 Other: Voiding Method Indwelling Catheter Indwelling Catheter Indwelling Catheter # Voids 3 # Bowel Movements 0 - Exam - Constitutional General appearance: Present: average body habitus, cooperative, no acute distress - EENT Eyes: Present: anicteric sclerae, EOMI, PERRLA, normal appearance ENT: Present: hearing grossly normal, normal oropharynx Ears: bilateral: normal - Neck Neck: Present: normal ROM. Absent: lymphadenopathy, rigidity, thyromegaly Carotids: negative: bruit present Thyroid: bilateral: normal size, negative: enlarged, nodule - Respiratory Respiratory: bilateral: CTA, negative: rales, rhonchi, wheezing - Cardiovascular Rhythm: regular Heart sounds: normal: S1, S2 Abnormal Heart Sounds: Absent: systolic murmur, diastolic murmur - Gastrointestinal General gastrointestinal: Present: normal bowel sounds, soft. Absent: distended, organomegaly, tenderness - Genitourinary Genitourinary Comment(s): deferred - Integumentary Integumentary: Present: normal turgor. Absent: jaundiced, rash, ulcer - Neurologic Neurologic: Present: CNII-XII intact. Absent: focal deficits - Musculoskeletal Musculoskeletal: Present: gait normal, strength equal bilaterally - Psychiatric Psychiatric: Present: A&O x's 3, appropriate affect, intact judgment & insight - Labs CBC & Chem 7: 11/10/19 04:46 11/10/19 04:46 Assessment and Plan Assessment: Status post L2-3, L3-4, L4-5 minimally invasive posterior lateral decompression and fusion with transforaminal lumbar interbody fusion - Surgery recommending to ambulate as tolerated; continue to increase activity with physical therapy; patient remains on pain controlled on IV and oral pain medications with plan to wean off IV Dilaudid for anticipated discharge in next 1-2 days Low back pain; secondary to degenerative scoliosis, lumbar spondylolisthesis; pain control as above Hyperlipidemia; Lipitor 20 mg by mouth daily at bedtime DVT prophylaxis; SCDs/early ambulation CODE STATUS; full code
[2019-11-13] MEDS: ATORVASTATIN 20 MG TAB PO SCH (19:59)
[2019-11-13] MEDS: traZODone HCL 50 MG TAB PO SCH (19:59)
[2019-11-14] MEDS: HYDROcodone/APAP 5-325MG 1 EACH TAB PO PRN ×3 (01:59→12:33)
[2019-11-14] MEDS: FOLIC ACID 1 MG TAB PO SCH (07:42)
[2019-11-14] MEDS: ASPIRIN 81 MG PO SCH (07:42)
[2019-11-14] MEDS: SENNOSIDES-DOCUSATE SODIUM 1 EACH TAB PO SCH (07:42)
--- NOTE | 2019-11-14 10:22 | P.DS ---
Providers Date of admission: 11/12/19 13:16 Expected date of discharge: 11/14/19 Attending physician: Ryan Yao Consults: 11/09/19 13:44 Consult Physician Routine Consulting Provider: Mt Silva Consult Reason/Comments: Medical management Do you want consulting provider notified?: Yes Primary care physician: Stated None - Discharge Diagnosis(es) (1) Spondylolisthesis, lumbar region Current Visit: Yes Status: Acute (2) Lumbar spinal stenosis Current Visit: Yes Status: Acute (3) Low back pain Current Visit: Yes Status: Acute (4) Scoliosis of lumbar region due to degenerative disease of spine in adult Current Visit: Yes Status: Acute (5) Hyperlipidemia Current Visit: Yes Status: Acute (6) Lumbar degenerative disc disease Current Visit: Yes Status: Acute (7) Status post lumbar spinal fusion Current Visit: Yes Status: Acute Hospital Course: Patient is a pleasant 69-year-old seen who presented with low back pain, degenerative scoliosis, lumbar spondylolisthesis, lumbar degenerative disc disease, and severe spinal canal stenosis who failed outpatient conservative therapy. She was admitted for an L2-3, L3-4, and L4-5 minimally invasive posterior lateral decompression and fusion with transforaminal lumbar interbody fusion. Initially she was progressing quite slowly postoperatively. She was considering discharge to a rehabilitation facility today. She is made significant improvement over the weekend. She's been able to ambulate up and down the hallways without significant difficulty. She feels her pain is well- controlled. She denies any lower extremity weakness and radiculopathy bilaterally. She is happy with her progress over the weekend. She is urinating without difficulty. She was able to have a bowel movement this morning. Patient does have a superficial abrasion over the left cheek that is most likely due to tape from anesthesia during surgical intervention. This appears to be healing appropriately without difficulty. She feels she is progressed and is ready for discharge home today. Condition on day of discharge stable. Patient will be discharged home. Patient was cleared preoperatively for surgery by . Patient currently denies any nausea, vomiting, fever, or chills. Patient is eating and voiding freely without difficulty. Patient may shower without dressings intact at this time over her surgical sites. Patient should refrain from driving until at least after their first follow-up appointment in the office. Patient should avoid excessive bending, lifting, and twisting; no lifting greater than 10 pounds. MAPS has been reviewed on 11/11/2019 with an Overall Overdose Risk Score of 190. An "Opiod Start Talking" Form has been signed and placed in the patient's chart. A prescription has been written for [place] 7.5 mg #25 mg 1-2 tabs every 6 hours as needed for pain, dispensed #56. This prescription was sent to [facility] pharmacy located with an [facility]. Patient should discontinue previous he prescribed [place] 5 mg/25 mg while taking [place] 7.5 mg/325 mg. Patient should avoid anti-inflammatory medications over the next 6 weeks postoperatively. Patient may resume other previously prescribed home medications. Patient's other medical diagnoses include hyperlipidemia Physical Exam on day of discharge: Patient is awake, alert, and oriented 3 Vital signs stable Good chest excursion with deep inspiration and expiration No signs or symptoms of DVT; no calf pain Extensor hallucis longus, plantarflexion, and dorsiflexion positive sustained bilateral lower extremities Incisions are clean, dry, and intact; no erythema, purulence, or signs of infe ction Dressing is removed during physical examination Some bruising along the lower lumbar spine and sacrum No active drainage from the incision sites No significant pain with palpation of the surgical sites Patient is able to move legs independently in the bed without any significant difficulty Procedures: L2-3, L3-4, and L4-5 minimally invasive posterior lateral decompression and fusion with transforaminal lumbar interbody fusion Patient Condition at Discharge: Stable Plan - Discharge Summary Discharge Rx Participant: Yes New Discharge Prescriptions: New HYDROcodone/APAP 7.5-325MG [[place] 7.5-325] 1 - 2 each PO Q6HR PRN #56 tab PRN Reason: Pain No Action traZODone HCL 50 mg PO HS Diclofenac Sodium Gel [Voltaren Gel] 2 gm TOPICAL QID PRN PRN Reason: Pain HYDROcodone/APAP 5-325MG [[place] 5-325] 1 tab PO Q6HR PRN PRN Reason: Pain Folic Acid 1 mg PO DAILY Ergocalciferol [Vitamin D2] 50,000 unit PO Q7D Atorvastatin [Lipitor] 20 mg PO HS Aspirin [Adult Low Dose Aspirin EC] 81 mg PO DAILY Discharge Medication List Atorvastatin [Lipitor] 20 mg PO HS 11/03/19 [History] Diclofenac Sodium Gel [Voltaren Gel] 2 gm TOPICAL QID PRN 11/03/19 [History] Ergocalciferol [Vitamin D2] 50,000 unit PO Q7D 11/03/19 [History] Folic Acid 1 mg PO DAILY 11/03/19 [History] HYDROcodone/APAP 5-325MG [[place] 5-325] 1 tab PO Q6HR PRN 11/03/19 [History] traZODone HCL 50 mg PO HS 11/03/19 [History] Aspirin [Adult Low Dose Aspirin EC] 81 mg PO DAILY 11/09/19 [History] HYDROcodone/APAP 7.5-325MG [[place] 7.5-325] 1 - 2 each PO Q6HR PRN #56 tab 11/11/19 [Rx] Follow up Appointment(s)/Referral(s): Kenny Bills, DOMINICK [[employer]] - 2 Weeks (Patient may follow-up with Kenny Bills PA-C or Dr. Mykel Yao at [facility] in 2-3 weeks following discharge. ) Activity/Diet/Wound Care/Special Instructions: 1. Patient may shower without a dressing intact at this time. 2. Patient should refrain from driving until at least after their first follow- up appointment in the office. 3. Patient should avoid excessive bending, twisting, and lifting; no lifting greater than 10 pounds 4. Take medications as prescribed 5. Do not soak in tub Discharge Disposition: HOME SELF-CARE
[2019-11-14 11:49] VITALS: BP 122/57; PULSE 83; RESP 17; TEMP 98.1
== END 2019-11-14 15:23 | disposition home or self-care (01) | DRG 454 ==
LOC: OR 07:16 → 6NMEDSUR 14:51 → OR 11-10 08:11 → 6NMEDSUR 11-10 08:11 → OBSVTOIN 11-12 13:16
PROVIDERS: ADMIT Orthopaedic Surgery Orthopaedic Surgery of the Spine; ATTEND Orthopaedic Surgery Orthopaedic Surgery of the Spine
PROC: 0SG1071 Fusion of 2 or more Lumbar Vertebral Joints with Autologous Tissue Substitute, Posterior Approach, Posterior Column, Open Approach (ICD-10-PCS; principal; 2019-11-09 08:30)
PROC: 0ST20ZZ Resection of Lumbar Vertebral Disc, Open Approach (ICD-10-PCS; principal; 2019-11-09 08:30)
PROC: 0SG10AJ Fusion of 2 or more Lumbar Vertebral Joints with Interbody Fusion Device, Posterior Approach, Anterior Column, Open Approach (ICD-10-PCS; principal; 2019-11-09 08:30)
PROC: 01NB0ZZ Release Lumbar Nerve, Open Approach (ICD-10-PCS; principal; 2019-11-09 08:30)
DX: M48.062 Spinal stenosis, lumbar region with neurogenic claudication (principal); N39.0 Urinary tract infection, site not specified; M41.56 Other secondary scoliosis, lumbar region; E83.51 Hypocalcemia; I95.9 Hypotension, unspecified; M51.16 Intervertebral disc disorders with radiculopathy, lumbar region; M43.16 Spondylolisthesis, lumbar region; E78.5 Hyperlipidemia, unspecified; E86.0 Dehydration; E83.52 Hypercalcemia; F41.9 Anxiety disorder, unspecified; F17.210 Nicotine dependence, cigarettes, uncomplicated; F32.9 Major depressive disorder, single episode, unspecified; M16.12 Unilateral primary osteoarthritis, left hip; M47.27 Other spondylosis with radiculopathy, lumbosacral region; S00.81XA Abrasion of other part of head, initial encounter; Z79.82 Long term (current) use of aspirin; Z79.899 Other long term (current) drug therapy; Z96.641 Presence of right artificial hip joint; Z90.710 Acquired absence of both cervix and uterus; Z98.890 Other specified postprocedural states
CPT/HCPCS: 72100; 80048; 80053; 81001; 84443; 84484; 85025; 86850; 86870; 86880; 86891; 86900; 86901; 86902; 87086; 93005